=== PATIENT | male | born 2000 | race Caucasian/White ===

== ENCOUNTER 2023-12-30 23:07 | Emergency (ER) | payer BC ==
[~2023-12-30] VITALS: Ht 170.2 cm; Wt 56.7 kg
[2023-12-30] MEDS: SULFAMETH/TRIMETH 800/160 MG 1 UDTAB TABLET PO ONE (23:45)
[2023-12-30] MEDS ORDERED: IBUPROFEN 400 MG TABLET ONE (23:45)
[2023-12-30] MEDS: IBUPROFEN 400 MG TABLET PO ONE (23:45)
[2023-12-30] MEDS ORDERED: SULFAMETH/TRIMETH 800/160 MG 1 UDTAB TABLET ONE (23:45)
[2023-12-30] MEDS ORDERED: SULF1TAB47 PO (23:48)
[2023-12-30] MEDS ORDERED: IBUP-1955 PO (23:48)
[2023-12-31 00:30] VITALS: BP 133/76; TEMP 98.2; O2SAT 98
== END 2023-12-31 00:30 | disposition home or self-care (01) ==
LOC: ER 23:24
DX: H60.11 Cellulitis of right external ear (principal); Z88.0 Allergy status to penicillin; Z88.8 Allergy status to other drugs, medicaments and biological substances